=== PATIENT | male | born 1995 | race Caucasian/White ===

== ENCOUNTER 2020-01-07 00:18 | Emergency (ER) | payer MEDICAID, OTHER ==
[~2020-01-07] VITALS: Ht 180.3 cm; Wt 77.3 kg
[~2020-01-07 00:18] MED LIST: ADV50250 IH; ALBU8.5H4 IH; IBUP-1051 PO; LISD20CA PO; TRIA15CR61 TP; [UNRECOGNIZED DRUG - CODE] TP
[2020-01-07 00:19] VITALS: BP 102/75
--- NOTE | 2020-01-07 00:58 | NUR ---
used warm water flushes and querette to remove tricia MD seen results. The clarke appears to have bitten the inside of his canal and there is inflammation to 3pm position.
== END 2020-01-07 01:08 | disposition home or self-care (01) ==
LOC: ER 00:19
DX: T16.1XXA Foreign body in right ear, initial encounter (principal); J45.909 Unspecified asthma, uncomplicated; Z79.899 Other long term (current) drug therapy; X58.XXXA Exposure to other specified factors, initial encounter; Y93.89 Activity, other specified; Y92.89 Other specified places as the place of occurrence of the external cause; Y99.8 Other external cause status
CPT/HCPCS: 99284